=== PATIENT | male | born 1995 | race Caucasian/White ===

== ENCOUNTER 2019-01-12 15:41 | Emergency (ER) | payer BC ==
[2019-01-12 16:38] VITALS: BP 129/43
--- NOTE | 2019-01-12 16:53 | UC ---
UC General HPI - HPI Summary HPI Summary: EARS ARE FEELING PLUGGED. HX WAX IN EARS. NO FEVER OR URI. - History of Current Complaint Chief Complaint: UCGeneralIllness Stated Complaint: RIGHT EAR CONCERN Time Seen by Provider: 01/12/19 16:41 Hx Obtained From: Patient Timing: Constant Pain Intensity: 0 Associated Signs & Symptoms: Negative: Fever, Headache - Allergy/Home Medications Allergies/Adverse Reactions: Allergies Allergy/AdvReac Type Severity Reaction Status Date / Time No Known Allergies Allergy Verified 01/12/19 16:38 Home Medications: Home Medications Ustekinumab [Stelara] 45 mg SQ SEE INSTRUCTIONS 01/12/19 [History Confirmed 09/22] PMH/Surg Hx/FS Hx/Imm Hx Previously Healthy: Yes - Surgical History Surgical History: Yes Surgery Procedure, Year, and Place: right shoulder 2013 - Family History Known Family History: Positive: Non-Contributory - Social History Occupation: Student Lives: Dormitory/Roommates Alcohol Use: None Substance Use Type: None Smoking Status (MU): Never Smoked Tobacco - Immunization History Vaccination Up to Date: Yes Review of Systems All Other Systems Reviewed And Are Negative: Yes Constitutional: Negative: Fever ENT: Negative: Sore Throat, Ear Ache, Nasal Discharge, Sinus Congestion, Sinus Pain/Tenderness Neurological: Negative: Headache Physical Exam Triage Information Reviewed: Yes Appearance: Well-Appearing Vital Signs: Initial Vital Signs Temp 97.9 F 01/12/19 16:34 Pulse 77 01/12/19 16:34 Resp 15 01/12/19 16:34 BP 129/43 01/12/19 16:34 Pulse Ox 99 01/12/19 16:34 Eyes: Positive: Conjunctiva Clear ENT: Positive: Pharynx normal, Other - TM'S OBSCURED BY CERUMEN. NO MASTOID TENDERNESS OR AURICULAR ADENOPATHY.. Negative: Nasal congestion, Nasal drainage Neck: Positive: Supple, Nontender, No Lymphadenopathy Respiratory: Positive: Lungs clear, Normal breath sounds Cardiovascular: Positive: RRR, No Murmur Abdomen Description: Positive: Nontender Musculoskeletal: Positive: ROM Intact Neurological: Positive: Alert Psychological: Positive: Age Appropriate Behavior Skin Exam: Normal Re-Evaluation - Re-Evaluation First Eval Re-Evaluation Time: 16:59 Change: Improved - R TM AHMET AND BOTH CANALS CLEAR BUT L TM DEEP ERYTHEMA Course/Dx - Diagnoses Provider Diagnosis: Impacted cerumen of both ears, Otitis media Discharge - Sign-Out/Discharge Documenting (check all that apply): Patient Departure All imaging exams completed and their final reports reviewed: No Studies - Discharge Plan Condition: Stable Disposition: HOME Prescriptions: Amoxicillin PO (*) [Amoxicillin 875 MG (*)] 875 mg PO BID 10 Days #20 tab Patient Education Materials: Cerumen Impaction (ED), Ear Infection (ED) Referrals: ANJUM TEIXEIRA [[facility], [facility], OTHER] - 7 Days - Billing Disposition and Condition Condition: STABLE Disposition: Home - Attestation Statements Provider Attestation: Per institutional requirements, I have reviewed the chart, however, I was not consulted specifically or made aware of this patient by the midlevel provider. I did not personally evaluate, interact with , or disposition this patient.
== END 2019-01-12 17:04 | disposition home or self-care (01) ==
LOC: UCCORT 15:41
DX: H61.23 Impacted cerumen, bilateral (principal); H66.90 Otitis media, unspecified, unspecified ear
CPT/HCPCS: 99203; G0463